=== PATIENT | female | born 1955 | race Caucasian/White ===

== ENCOUNTER 2017-08-25 13:01 | Outpatient (CLI) | payer OTHER ==
--- NOTE | 2017-08-25 13:39 | MMO ---
BILATERAL SCREENING MAMMOGRAMS: Date: 08/25/17 Comparison made to prior exams from 2013, 2015, and 2016. History of right breast with lumpectomy and radiation. This patient's mammogram was interpreted with the assistance of computer-aided detection. FINDINGS: Scattered fibroglandular densities. Postoperative changes in the right breast appear stable. Benign c alcifications are stable. Scattered benign densities in the left breast are stable. Recommend one yea r follow-up. IMPRESSION: BIRADS 2: Benign Finding(s) POS: [facility]
== END 2017-08-25 13:02 | disposition home or self-care (01) ==
LOC: SCSMAMMO 13:01
PROVIDERS: ATTEND Obstetrics & Gynecology
DX: Z12.31 Encounter for screening mammogram for malignant neoplasm of breast (principal)
CPT/HCPCS: 77067; G0202

== ENCOUNTER 2018-09-07 09:46 | Outpatient (CLI) | payer BC ==
--- NOTE | 2018-09-07 11:17 | BD ---
DEXA BONE DENSITY STUDY: HISTORY: Osteoporosis screening. Z13.820, encounter for screening for osteoporosis. COMPARISON: DEXA study from 2015. FINDINGS: LUMBAR SPINE BMD (g/cm2) T-SCORE Z-SCORE L1 0.773 -2.0 -0.5 L2 0.884 -1.3 0.3 L3 1.209 1.1 2.9 L4 1.128 0.6 2.4 TOTAL 1.013 -0.3 1.3 WHO CLASSIFICATION: Normal. The change from the comparison examination is +3.8%, statistically significant. BMD (g/cm2) T-SCORE Z-SCORE FEMORAL NECK: 0.644 -1.8 -0.4 TOTAL LEFT HIP: 0.884 -0.5 0.7 WHO CLASSIFICATION: Osteopenia. The change from the comparison examination is +10.4%, statistically significant. TEN-YEAR FRACTURE RISK: Major osteoporotic fracture: 11% Hip fracture: 1.8% IMPRESSION: Increased bone mineral density from the comparison examination, with a statistically significant incr ease of the lumbar spine and the left hip. POS: [facility]
== END 2018-09-07 09:47 | disposition home or self-care (01) ==
LOC: BICMAMMO 09:46
PROVIDERS: ATTEND Obstetrics & Gynecology
DX: Z12.31 Encounter for screening mammogram for malignant neoplasm of breast (principal); Z13.820 Encounter for screening for osteoporosis; M85.89 Other specified disorders of bone density and structure, multiple sites; Z85.3 Personal history of malignant neoplasm of breast
CPT/HCPCS: 77063; 77067; 77080